=== PATIENT | male | born 1965 | race Caucasian/White ===

== ENCOUNTER → 2017-09-06 | Outpatient (CLI) | payer OTHER ==
[~2017-09-06] VITALS: Ht 177.8 cm; Wt 77.1 kg
[~2017-09-06] MED LIST: ELAVIL25 MG PO; MEN'S MULTI-VI1 EACH PO; PRILOSEC20 MG PO; REFLUX MEDICATION PO
== END | disposition home or self-care (01) ==
LOC: AMB 06:56
PROC: 0DJD8ZZ Inspection of Lower Intestinal Tract, Via Natural or Artificial Opening Endoscopic (ICD-10-PCS; principal; 2017-09-06)
DX: Z12.11 Encounter for screening for malignant neoplasm of colon (principal); Z80.0 Family history of malignant neoplasm of digestive organs
CPT/HCPCS: J7643